=== PATIENT | male | born 2000 | race Caucasian/White ===

== ENCOUNTER 2018-05-14 14:13 | Emergency (ER) | payer OTHER ==
[~2018-05-14] VITALS: Ht 182.9 cm; Wt 83.9 kg
[~2018-05-14 14:13] MED LIST: PRM5C60 TP
--- OUTSIDE RECORDS SUMMARY | 2018-05-14 14:20 | XMS REPORT ---
Author Author JASON HUERTA [facility] Address [address] [place] [address] Care Team Providers Care Internal Auditor Name Role Phone BRADLEYKASHJASON Unavailable PROBLEMS Type Condition ICD9-CM Code ZST49-SQ Code Onset Dates Condition Status SNOMED Code Problem ADHD (attention deficit hyperactivity disorder), combined type F90.2 Active 23500227 Problem RACHELLE (generalized anxiety disorder) F41.1 Active 76696094 Problem Generalized anxiety disorder 300.02 Active 62704645 Problem Oppositional defiant disorder 313.81 Active [id number] ALLERGIES No Known Allergies ENCOUNTERS Encounter Location Date Diagnosis [facility] [place] [address] [address] Dec, [facility] [place] [id number] [place] [address] 40600- 0479 August, ADHD (attention deficit hyperactivity disorder), combined type F90.2 and RACHELLE (generalized anxiety disorder) F41.1 [facility] [place] [id number] [place] [address] 41792- 5816 Jun, [facility] [place] [id number] [place] [address] 47528- 3186 Apr, [facility] [place] [id number] [place] [address] 15076- 3172 Apr, ADHD (attention deficit hyperactivity disorder), combined type F90.2 [facility] [place] [id number] [place] [address] 30074- 7659 Feb, [facility] [place] [id number] [place] [address] 03317- 0993 Jan, [facility] [place] [id number] [place] [address] 83358- 7969 Dec, [facility] [place] [id number] [address] Nov, ADHD (attention deficit hyperactivity disorder), combined type F90.2 and RACHELLE (generalized anxiety disorder) F41.1 [facility] [place] [id number] [place] [address]- [address]46 Sep, [facility] [place] [id number] [place] [address], [place] [address] 99[address] Jul, [facility] [place] [id number] [place] [address], [place] [address]- 3536 Jun, [facility] [place] [id number] [place] [address], [place] [address]- 3126 May, [facility] [place] [id number] [address] 8[address] May, ADHD (attention deficit hyperactivity disorder), combined type F90.2 and RACHELLE (generalized anxiety disorder) F41.1 [facility] [place] [address], [place] [address] 44[address] Apr, [facility] [place] [id number] [place] [address] 46221- 5526 Apr, [facility] [place] [address], [place] [address]- 9794 Mar, [facility] [place] [id number] [address]- 9456 Feb, [facility] [place] [id number], [place] [address] 34[address] Jan, [facility] [place] [id number] [address] Jan, ADHD (attention deficit hyperactivity disorder), combined type F90.2 and RACHELLE (generalized anxiety disorder) F41.1 [facility] [place] [address], [place] [address]- 0586 Dec, [facility] [place] [id number] [address]- 67[address] Nov, [facility] [id number] [address] Nov, Sports physical Z02.5 ; Exercise counseling Z71.89 and Dietary counseling Z71.3 [facility] [place] [address] [address]- 83[address] Oct, [facility] [place] [id number] [address]- 0690 Sep, [facility] [place] [id number] [place] [address] 56520- 7559 Sep, [facility] [place] [id number], [place] [address]- 8[address] August, [facility] [place] [id number] [place] [address] 40046- 6887 Jul, [facility] [place] [id number] [place] [address] 88014- 2592 Jul, ADHD (attention deficit hyperactivity disorder), combined type F90.2 and RACHELLE (generalized anxiety disorder) F41.1 [facility] [place] [address], [place] [address]- 0656 Jun, [facility] [place] [address] [address]- 39[address] May, [facility] [place] [address], [place] [address]- 4085 Apr, [facility] [place] [address], [place] [address]- 1616 Apr, [facility] [place] [id number] [address] Apr, ADHD (attention deficit hyperactivity disorder), combined type F90.2 and RACHELLE (generalized anxiety disorder) F41.1 [facility] [place] [id number] [address]- 8816 Mar, [facility] [place] [address], [place] [address]- 5936 Jan, Attention deficit hyperactivity disorder (ADHD), combined type F90.2 and RACHELLE (generalized anxiety disorder) F41.1 [facility] [place] [address] [address]- 5616 Nov, [facility] [place] [id number] [place] [address] 02472- 6496 Nov, [facility] [place] [id number] [place] [address] 24981- 1115 August, Attention deficit disorder with hyperactivity 314.01 and Generalized anxiety disorder 300.02 [facility] [place] [id number] [address]- 5[address] 14 Jul, 2014 [facility] [place] [id number] [place] [address] 715594- 6568 Jul, [facility] [place] [address], [place] [address]- 2900 Jun, [facility] [place] [id number] [address]- 2389 Jun, [facility] [place] [address] [address] May, [facility] [place] [address] [address] May, [facility] [place] [address], [place] [address]- 6159 Mar, [facility] [place] [id number] [address]- 3206 Mar, [facility] [place] [address], [place] [address]- 3016 Dec, [facility] [place] [address], [place] [address]- 0106 Dec, [facility] [place] [facility] [address] [id number] [place] [address]- 3108 Sep, [facility] [place] [facility] [address] [id number] [place] [address]- 3946 Sep, [facility] [place] [facility] [address] [id number] [place] [address]- 6254 Sep, [facility] [place] [facility] [address] [id number] [place] [address]- 4713 Sep, [facility] [place] [facility] [address] [id number] [place] [address]- 4809 August, [facility] [place] [facility] [address] [id number] [place] [address]- 7603 August, [facility] [place] [facility] [address] [id number] [place] [address]- 5794 August, [facility] [place] [facility] [address] [id number] [place] [address]- 3407 August, [facility] [place] [facility] [address] [id number] [place] [address]- 2130 Jul, [facility] [place] [facility] [address] [id number] [place] [address]- 8525 Jul, [facility] [place] [facility] [address] [id number] [place] [address]- 5883 May, [facility] [place] [facility] [address] [id number] [place] [address]- 1206 May, [facility] [place] [facility] [address] [id number] [place] [address]- 2797 Apr, [facility] [place] [facility] [address] [id number] [place] [address]- 4016 Apr, [facility] [place] [facility] [address] [id number] [place] [address]- 8831 Mar, [facility] [place] [facility] [address] [id number] [place] [address]- 9390 31 Mar, 2013 [facility] [address] [id number] [place] [address]- 7307 30 Mar, 2013 [facility] [place] [facility] [address] [id number] [place] [address]- 4939 Mar, [facility] [address] [id number] [place] [address]- 1736 Mar, [facility] [place] [facility] [address] [id number] [place] [address]- 2533 Feb, [facility] [address] [id number] [place] [address]- 6781 Feb, [facility] [place] [facility] [address] [id number] [place] [address]- 8826 Feb, [facility] [address] [id number] [place] [address]- 9870 Feb, [facility] [address] [id number] [place] [address]- 2702 Apr, [facility] [address] [id number] [place] [address]- 8998 Sep, [facility] [address] [facility] [id number] [place] [address]- 2046 Jan, [facility] [address] [id number] [place] [address]- 9499 Jan, [facility] [place] [facility] [address] [id number] [place] [address]- 8242 Oct, [facility] [place] [facility] [address] [id number] [place] [address]- 5271 Jul, [facility] [place] [facility] [address] [id number] [place] [address]- 5649 07 Mar, 2010 [facility] [place] [facility] [address] [id number] [place] [address]- 3833 Feb, [facility] [place] [address] [facility] [id number] [place] [address]- 2146 Jan, [facility] [place] [address] [facility] [id number] [address]- 5906 Sep, [facility] [place] [address] [facility] [id number] [place] [address]- 2046 Jan, IMMUNIZATIONS No Known Immunizations SOCIAL HISTORY Never Assessed REASON FOR VISIT f/u, contract PLAN OF CARE Activity Details Follow Up 3 Months Reason: VITAL SIGNS Height 73.0 in 2017-08-20 Weight 187.5 lbs 2017-08-20 Heart Rate 68 bpm 2017-08-20 Respiratory Rate 20 2017-08-20 BMI 24.73 kg/m2 2017-08-20 Blood pressure systolic 110 mmHg 2017-08-20 Blood pressure diastolic 76 mmHg 2017-08-20 MEDICATIONS Medication Instructions Dosage Frequency Start Date End Date Duration Status Adderall 10 mg Orally On Thursday and Thursday for ADHD 1 tablet in the AM August, Active Vyvanse 60 mg Orally Once a day for ADHD Thursday through Thursday 1 capsule August, 28 days Active RESULTS No Results PROCEDURES No Known procedures INSTRUCTIONS MEDICATIONS ADMINISTERED No Known Medications
--- OUTSIDE RECORDS SUMMARY | 2018-05-14 14:20 | XMS REPORT ---
Author Author JASON HUERTA [facility] Address [address] [place] [address] Care Team Providers Care Boat And Plant Utility Supervisor Name Role Phone BRADLEY JASON Unavailable PROBLEMS Type Condition ICD9-CM Code [id number] Code Onset Dates Condition Status SNOMED Code Problem ADHD (attention deficit hyperactivity disorder), combined type F90.2 Active 86856645 Problem RACHELLE (generalized anxiety disorder) F41.1 Active 26108662 Problem Generalized anxiety disorder 300.02 Active 10175885 Problem Oppositional defiant disorder 313.81 Active [id number] ALLERGIES No Information ENCOUNTERS Encounter Location Date Diagnosis [facility] [id number] [place] [address] 09641- 2293 May, [facility] [id number] [place] [address] 02128- 8373 Dec, ADHD (attention deficit hyperactivity disorder), combined type F90.2 and RACHELLE (generalized anxiety disorder) F41.1 [facility] [id number] [address]- 4800 Dec, [facility] [id number] [place] [address] 50145- 6867 August, ADHD (attention deficit hyperactivity disorder), combined type F90.2 and RACHELLE (generalized anxiety disorder) F41.1 [facility] [address], [place] [address]- 0509 Jun, [facility] [id number] [place] [address] 00329- 9045 Apr, [facility] [id number] [place] [address] 87821- 9771 Apr, ADHD (attention deficit hyperactivity disorder), combined type F90.2 [facility] [address], [place] [address]- 3749 Feb, [facility] [id number] [place] [address]- 8786 Jan, [facility] [id number] [place] [address]- 9366 Dec, [facility] [id number] [place] [address] 70073- 0495 Nov, ADHD (attention deficit hyperactivity disorder), combined type F90.2 and RACHELLE (generalized anxiety disorder) F41.1 [facility] [id number] [place] [address], [place] [address]- 4546 Sep, [facility] [id number] [address]- 4276 Jul, [facility] [id number] [place] [address] 55087- 8488 Jun, [facility] [address], [place] [address]- 0726 May, [facility] [id number] [address]- 6539 May, ADHD (attention deficit hyperactivity disorder), combined type F90.2 and RACHELLE (generalized anxiety disorder) F41.1 [facility] [address] [address]- 1816 Apr, [facility] [address], [place] [address]- 4766 Apr, [facility] [address], [place] [address]- 8309 Mar, [facility] [id number] [place] [address]- 7136 Feb, [facility] [id number], [place] [address]- 8896 Jan, [facility] [address], [place] [address]- 5913 Jan, ADHD (attention deficit hyperactivity disorder), combined type F90.2 and RACHELLE (generalized anxiety disorder) F41.1 [facility] [id number] [address]- 1456 Dec, [facility] [id number] [place] [address] 82895- 9187 Nov, [facility] [id number] [place] [address] [id number] Nov, Sports physical Z02.5 ; Exercise counseling Z71.89 and Dietary counseling Z71.3 [facility] [id number] [place] [address] 374100- 0591 Oct, [facility] [id number] [place] [address] 28190- 6662 Sep, [facility] [id number] [place] [address] 68377- 9934 Sep, [facility] [id number] [place] [address] 32253- 7055 August, [facility] [id number] [place] [address] 71069- 7826 Jul, [facility] [id number] [place] [address] 02563- 2906 Jul, ADHD (attention deficit hyperactivity disorder), combined type F90.2 and RACHELLE (generalized anxiety disorder) F41.1 [facility] [address], [place] [address]- 9111 Jun, [facility] [id number] [place] [address] 464655- 8086 May, [facility] [address], [place] [address]- 8175 Apr, [facility] [id number] [address]- 1876 Apr, [facility] [address], [place] [address]- 5646 Apr, ADHD (attention deficit hyperactivity disorder), combined type F90.2 and RACHELLE (generalized anxiety disorder) F41.1 [facility] [address], [place] [address]- 1656 Mar, [facility] [id number] [place] [address] 74952- 3696 Jan, Attention deficit hyperactivity disorder (ADHD), combined type F90.2 and RACHELLE (generalized anxiety disorder) F41.1 [facility] [id number] [place] [address] 66713- 7166 Nov, [facility] [id number] [address]- 5199 Nov, [facility] [id number] [place] [address] 07519- 4752 August, Attention deficit disorder with hyperactivity 314.01 and Generalized anxiety disorder 300.02 [facility] [address], [place] [address]- 9740 Jul, [facility] [address] 5636 Jul, [facility] [address], [place] [address]- 4396 Jun, [facility] [id number], [place] [address] 2546 Jun, [facility] [address], [place] [address]- 0686 May, [facility] [address], [place] [address]- 3496 May, [facility] [address], [place] [address]- 3266 Mar, [facility] [place] [facility] [address] [id number] [place] [address]- 5603 Mar, [facility] [place] [facility] [address] [id number] [place] [address]- 8785 Dec, [facility] [place] [facility] [address] [id number] [place] [address]- 4982 Dec, [facility] [place] [facility] [address] [id number] [place] [address]- 8062 Sep, [facility] [place] [facility] [address] [id number] [place] [address]- 4846 Sep, [facility] [place] [facility] [address] [id number] [place] [address]- 9273 Sep, [facility] [place] [facility] [address] [id number] [place] [address]- 3726 Sep, [facility] [place] [facility] [address] [id number] [place] [address]- 1194 August, [facility] [place] [facility] [address] [id number] [place] [address]- 4988 August, [facility] [place] [facility] [address] [id number] [place] [address]- 8412 August, [facility] [place] [facility] [address] [id number] [place] [address]- 0843 August, [facility] [place] [facility] [address] [id number], [place] [address]- 5013 Jul, [facility] [place] [facility] [address] [id number] [place] 1435 Jul, [facility] [place] [facility] [address] [id number] [place] [address]- 7883 May, [facility] [place] [facility] [address] [id number] [place] 5428 May, [facility] [place] [facility] [address] [id number] [address]- 5234 Apr, [facility] [address] [id number] [place] [address]- 8479 Apr, [facility] [place] [facility] [address] [id number] [place] [address] Mar, [facility] [place] [facility] [address] [id number] [place] [address] Mar, [facility] [place] [facility] [address] [id number] [place] [address] Mar, [facility] [place] [facility] [address] [id number] [place] [address] Mar, [facility] [place] [facility] [address] [id number] [place] [address] Mar, [facility] [address] [id number] [place] [address] Feb, [facility] [place] [facility] [address] [id number] [place] [address] Feb, [facility] [place] [facility] [address] [id number] [place] [address] Feb, [facility] [place] [facility] [address] [id number] [place] [address] Feb, [facility] [place] [facility] [address] [id number], [place] [address] Apr, [facility] [place] [facility] [address] [id number], [place] [address] Sep, [facility] [place] [facility] [address] [id number], [place] [address] Jan, [facility] [place] [facility] [address] [id number] [place] [address] Jan, [facility] [place] [facility] [address] [id number] [place] [address] Oct, [facility] [place] [facility] [address] [facility] [id number] [place] [address] Jul, [facility] [address] [id number], [place] [address] Mar, [facility] [address] [id number], [place] [address] Feb, [facility] [address] [id number], [place] [address] Jan, [facility] [address] [id number], [place] [address] Sep, [facility] [address] [id number], [place] [address] Jan, IMMUNIZATIONS No Known Immunizations SOCIAL HISTORY Never Assessed REASON FOR VISIT f/silvina Parikh RN, adhd PLAN OF CARE Activity Details Follow Up 4-5m Reason: VITAL SIGNS Height 73.0 in 2017-12-31 Weight 186.2 lbs 2017-12-31 Heart Rate 74 bpm 2017-12-31 Respiratory Rate 18 2017-12-31 BMI 24.56 kg/m2 2017-12-31 Blood pressure systolic 118 mmHg 2017-12-31 Blood pressure diastolic 68 mmHg 2017-12-31 MEDICATIONS Medication Instructions Dosage Frequency Start Date End Date Duration Status Adderall 10 mg Orally On Thursday and Thursday for ADHD 1 tablet in the AM Dec, Active Vyvanse 60 mg Orally Once a day for ADHD Thursday through Thursday 1 capsule Dec, 28 days Active RESULTS No Results PROCEDURES No Known procedures INSTRUCTIONS MEDICATIONS ADMINISTERED No Known Medications
--- OUTSIDE RECORDS SUMMARY | 2018-05-14 14:21 | XMS REPORT ---
Author Author JASON HUERTA [facility] Address [address] [place] [address] Care Team Providers Care Major Donor Coordinator Name Role Phone JASON HUERTA Unavailable PROBLEMS Type Condition ICD9-CM Code EXE31-IL Code Onset Dates Condition Status SNOMED Code Problem ADHD (attention deficit hyperactivity disorder), combined type F90.2 Active 01728223 Problem RACHELLE (generalized anxiety disorder) F41.1 Active 81379480 Problem Generalized anxiety disorder 300.02 Active 67590594 Problem Oppositional defiant disorder 313.81 Active [id number] ALLERGIES No Information SOCIAL HISTORY Never Assessed PLAN OF CARE VITAL SIGNS MEDICATIONS Medication Instructions Dosage Frequency Start Date End Date Duration Status Vyvanse 50 mg Orally Once a day 1 capsule 24h May, 28 days Active Adderall 10 mg Orally On Thursday and Thursday for ADHD 1 tablet at noon May, 28 days Active RESULTS No Results PROCEDURES No Known procedures IMMUNIZATIONS No Known Immunizations
--- OUTSIDE RECORDS SUMMARY | 2018-05-14 14:21 | XMS REPORT ---
Author Author JASON HUERTA [employer] Address Unknown Phone Unavailable Care Team Providers Care Marine Structural Welder Name Role Phone JASON HUERTA CP Unavailable Allergies, Adverse Reactions, Alerts Substance Reaction Event Type N.K.D.A. Info Not Available Non Drug Allergy Problems Problem Type Condition Code Onset Dates Condition Status Problem RACHELLE (generalized anxiety disorder) F41.1 Active Problem Oppositional defiant disorder 313.81 Active Problem ADHD (attention deficit hyperactivity disorder), combined type F90.2 Active Assessment RACHELLE (generalized anxiety disorder) F41.1 Active Problem Generalized anxiety disorder 300.02 Active Assessment ADHD (attention deficit hyperactivity disorder), combined type F90.2 Active Medications Medication Code System Code Instructions Start Date End Date Status Dosage Vyvanse [facility] [address]-[address] Barreto to sign for Yaquelin Once a day for ADHD. June 21, 2014 1 capsule Procedures Procedure Coding System Code Date Office Visit, Est Pt., Level 4 CPT-4 96452 Apr 17, 2015 Vital Signs Date/Time: Apr 17, 2015 Blood Pressure Systolic 102 mmHg Weight 187.0 lbs Height 72.4 in Wt Percentile 93.07 % Ht Percentile 89.14 % BMI 25.08 Index Blood Pressure Diastolic 74 mmHg BMIPercentile 86.4 % Results No Known Results Summary Purpose eClinicalWorks Submission
--- OUTSIDE RECORDS SUMMARY | 2018-05-14 14:21 | XMS REPORT ---
Author Author RAZA FRAUSTO Organization [facility] Address [address] [place] [address] Care Team Providers Care Jackscrew Worker Name Role Phone RAZA FRAUSTO Unavailable PROBLEMS Type Condition ICD9-CM Code EAZ97-IC Code Onset Dates Condition Status SNOMED Code Problem ADHD (attention deficit hyperactivity disorder), combined type F90.2 Active 97533942 Problem RACHELLE (generalized anxiety disorder) F41.1 Active 94000483 Problem Generalized anxiety disorder 300.02 Active 29923633 Problem Oppositional defiant disorder 313.81 Active 31010052 ALLERGIES No Information ENCOUNTERS Encounter Location Date Diagnosis [facility] [address] [address] Dec, [facility] [id number] [place] [address] August, ADHD (attention deficit hyperactivity disorder), combined type F90.2 and RACHELLE (generalized anxiety disorder) F41.1 [facility] [id number] [place] [address] Jun, [facility] [id number] [place] [address] Apr, [facility] [id number] [place] [address] Apr, ADHD (attention deficit hyperactivity disorder), combined type F90.2 [facility] [id number] [place] [address] Feb, [facility] [id number] [place] [address]- [address] Jan, [facility] [address] [address] Dec, [facility] [id number] [address] Nov, ADHD (attention deficit hyperactivity disorder), combined type F90.2 and RACHELLE (generalized anxiety disorder) F41.1 [facility] [id number] [place] [address] Sep, [facility] [id number] [place] [address], [place] [address] Jul, [facility] [id number] [place] [address] Jun, [facility] [id number] [place] [address], [place] [address] May, [facility] [id number] [place] [address] May, ADHD (attention deficit hyperactivity disorder), combined type F90.2 and RACHELLE (generalized anxiety disorder) F41.1 [facility] [id number] [address] Apr, [facility] [id number] [place] [address] Apr, [facility] [id number] [address] Mar, [facility] [id number] [address] Feb, [facility] [id number] [address] Jan, [facility] [id number] [address] Jan, ADHD (attention deficit hyperactivity disorder), combined type F90.2 and RACHELLE (generalized anxiety disorder) F41.1 [facility] [id number] [address] Dec, [facility] [id number] [address] Nov, [facility] [id number] [id number] Nov, Sports physical Z02.5 ; Exercise counseling Z71.89 and Dietary counseling Z71.3 [facility] [id number] [address] Oct, [facility] [id number] [place] [address]- [address] Sep, [facility] [id number] [place] [address]- 2015 Sep, [facility] [id number] [place] [address]- [address] August, [facility] [id number] [place] [address]- [address] Jul, [facility] [id number] [place] [address]- [address] Jul, ADHD (attention deficit hyperactivity disorder), combined type F90.2 and RACHELLE (generalized anxiety disorder) F41.1 [facility] [id number] [address] Jun, [facility] [id number] [address] May, [facility] [id number] [address] Apr, [facility] [id number] [address] Apr, [facility] [id number] Apr, ADHD (attention deficit hyperactivity disorder), combined type F90.2 and RACHELLE (generalized anxiety disorder) F41.1 [facility] [id number] [place] [address] Mar, [facility] [id number] [address] Jan, Attention deficit hyperactivity disorder (ADHD), combined type F90.2 and RACHELLE (generalized anxiety disorder) F41.1 [facility] [id number] [address] Nov, [facility] [id number] [address] Nov, [facility] [id number] [address] August, Attention deficit disorder with hyperactivity 314.01 and Generalized anxiety disorder 300.02 [facility] [id number] [address] Jul, [facility] [id number] [place] [address]- [address] Jul, [facility] [id number] [address] Jun, [facility] [id number] [address] Jun, [facility] [id number] [address]- [address] May, [facility] [id number] [address]- [address] May, [facility] [id number] [address]- [address] Mar, [facility] [id number] [address]- [address] Mar, [facility] [id number] [address]- [address] Dec, [facility] [id number] [address]- [address] Dec, [facility] [place] [facility] [address] [id number] [place] [address]- [address] Sep, [facility] [place] [facility] [address] [id number] [place] [address]- 8[address] Sep, [facility] [place] [facility] [address] [id number] [place] [address]- 8989 Sep, [facility] [place] [facility] [address] [id number] [place] [address]- [address] Sep, [facility] [place] [facility] [address] [id number] [place] [address]- 0[address] August, [facility] [place] [facility] [address] [id number] [place] [address]- 99[address] August, [facility] [place] [facility] [address] [id number] [place] [address]- [address] August, [facility] [place] [facility] [address] [id number] [place] [address]- 27[address] August, [facility] [place] [facility] [address] [id number] [place] [address]- [address] Jul, [facility] [place] [facility] [address] [id number] [place] [address]- [address]265 Jul, [facility] [place] [facility] [address] [id number] [place] [address]- 5231 May, [facility] [place] [facility] [address] [id number] [place] [address]- 9398 May, [facility] [place] [facility] [address] [id number] [place] [address]- 1353 Apr, [facility] [place] [facility] [address] [id number] [place] [address]- 34[address] Apr, [facility] [place] [facility] [address] [id number] [place] [address]- 488[address] Mar, [facility] [place] [facility] [address] [id number] [place] [address]- [address] 31 Mar, 2013 [facility] [address] [id number] [place] [address]- [address] 30 Mar, 2013 [facility] [place] [facility] [address] [id number] [place] [address]- 0762 Mar, [facility] [address] [id number] [place] [address]- 5406 Mar, [facility] [place] [facility] [address] [id number] [place] [address]- 9349 Feb, [facility] [address] [id number] [place] [address]- 58[address] Feb, [facility] [place] [facility] [address] [id number] [place] [address]- 4714 Feb, [facility] [address] [facility] [id number] [place] [address]- 9[address] Feb, [facility] [place] [facility] [address] [id number] [place] [address]- 0424 Apr, [facility] [place] [facility] [address] [id number] [place] [address]- 0203 Sep, [facility] [address] [facility] [id number] [place] [address]- 66[address] Jan, [facility] [place] [facility] [address] [id number] [place] [address]- 49[address] Jan, [facility] [place] [facility] [address] [id number] [address]- [address] Oct, [facility] [place] [facility] [address] [id number] [place] [address]- 0457 Jul, [facility] [place] [facility] [address] [id number] [place] [address]- 8[address] 07 Mar, 2010 [facility] [place] [facility] [address] [id number] [address]- [address] Feb, [facility] [address] [facility] [id number] [place] [address]- 2766 Jan, [facility] [address] [facility] [id number] [address]- [address] Sep, [facility] [address] [facility] [id number] [place] [address]- 8031 Jan, IMMUNIZATIONS No Known Immunizations SOCIAL HISTORY Never Assessed REASON FOR VISIT vyvanse 07/06/2017 PLAN OF CARE VITAL SIGNS MEDICATIONS Medication Instructions Dosage Frequency Start Date End Date Duration Status Vyvanse 60 mg Orally Once a day for ADHD 1 capsule Jun, 28 days Active RESULTS No Results PROCEDURES No Known procedures INSTRUCTIONS MEDICATIONS ADMINISTERED No Known Medications
--- OUTSIDE RECORDS SUMMARY | 2018-05-14 14:21 | XMS REPORT ---
Author JASON Mcginnis eClinicalWorks Address Unknown Phone Unavailable Care Team Providers Care Social Science Research Assistant Name Role Phone JASON HUERTA CP Unavailable [...] Instructions Start Date End Date Status Dosage Adderall [facility] [address]-17 10 mg Orally On Thursday and Thursday for ADHD Jan 22, 2016 1 tablet at noon Vyvanse [facility] [address]-97 50 mg Orally Once a day for ADHD. June 21, 2014 1 capsule Procedures Procedure Coding System Code Date Office Visit, Est Pt., Level 4 CPT-4 37401 Jan 22, 2016 Vital Signs Date/Time: Jan 22, 2016 Cardiac Monitoring Heart Rate 56 bpm Weight 186.0 lbs Height 73.0 in Ht Percentile 91.09 % BMI 24.54 Index Blood Pressure Diastolic 70 mmHg Blood Pressure Systolic 97 mmHg BMIPercentile 80.35 % Wt Percentile 90.52 % Results No Known Results Summary Purpose eClinicalWorks Submission
--- OUTSIDE RECORDS SUMMARY | 2018-05-14 14:21 | XMS REPORT ---
Author JASON Mcginnis eClinical[employer] Address Unknown Phone Unavailable Care Team Providers Care Home Teaching Grades 9 Thru 12 Teacher Name Role Phone JASON HUERTA CP Unavailable Allergies No Known Allergies Problems Problem Type Condition Code Onset Dates Condition Status Problem RACHELLE (generalized anxiety disorder) F41.1 Active Problem Oppositional defiant disorder 313.81 Active Problem ADHD (attention deficit hyperactivity disorder), combined type F90.2 Active Problem Generalized anxiety disorder 300.02 Active Medications No Known Medications Results No Known Results Summary Purpose eClinicalWorks Submission
--- OUTSIDE RECORDS SUMMARY | 2018-05-14 14:21 | XMS REPORT ---
Author Author JASON HUERTA [facility] Address [address] [place] [address] Care Team Providers Care Patient Attendant Name Role Phone BRADLEY JASON Unavailable PROBLEMS Type Condition ICD9-CM Code [id number] Code Onset Dates Condition Status SNOMED Code Problem ADHD (attention deficit hyperactivity disorder), combined type F90.2 Active 47239131 Problem RACHELLE (generalized anxiety disorder) F41.1 Active 09279297 Problem Generalized anxiety disorder 300.02 Active 38193955 Problem Oppositional defiant disorder 313.81 Active [id number] ALLERGIES No Information ENCOUNTERS Encounter Location Date Diagnosis [facility] [id number] [place] [address] 60011- 6918 Dec, [facility] [id number] [place] [address] 12228- 5040 August, ADHD (attention deficit hyperactivity disorder), combined type F90.2 and RACHELLE (generalized anxiety disorder) F41.1 [facility] [id number] [place] [address] 02934- 4956 Jun, [facility] [id number] [place] [address] 63773- 0988 Apr, [facility] [id number] [place] [address] 58883- 9777 Apr, ADHD (attention deficit hyperactivity disorder), combined type F90.2 [facility] [id number] [place] [address] 28640- 3354 Feb, [facility] [id number] [place] [address] 20532- 2815 Jan, [facility] [id number] [place] [address] 06471- 3618 Dec, [facility] [address] [address] Nov, ADHD (attention deficit hyperactivity disorder), combined type F90.2 and RACHELLE (generalized anxiety disorder) F41.1 [facility] [id number] [place] [address]- 2546 Sep, [facility] [id number] [place] [address], [place] [address]- 6406 Jul, [facility] [id number] [place] [address]- 0593 Jun, [facility] [id number] [place] [address], [place] [address]- 3096 May, [facility] [id number] [place] [address]- 8116 May, ADHD (attention deficit hyperactivity disorder), combined type F90.2 and RACHELLE (generalized anxiety disorder) F41.1 [facility] [id number] [address]- 8180 Apr, [facility] [id number] [place] [address] 69118- 6846 Apr, [facility] [id number] [address] Mar, [facility] [address] [address]- 4356 Feb, [facility] [address] [address]- 2731 Jan, [facility] [id number] [address]- 3166 Jan, ADHD (attention deficit hyperactivity disorder), combined type F90.2 and RACHELLE (generalized anxiety disorder) F41.1 [facility] [address] [address]- 5156 Dec, [facility] [address] [address]- 1475 Nov, [facility] [id number] [address] Nov, Sports physical Z02.5 ; Exercise counseling Z71.89 and Dietary counseling Z71.3 [facility] [address] [address]- 2245 Oct, [facility] [id number] [place] [address] 40366- 1337 Sep, [facility] [id number] [place] [address] 30737- 7653 Sep, [facility] [id number] [place] [address] 55897- 5326 August, [facility] [id number] [place] [address] 28529- 0392 Jul, [facility] [id number] [place] [address] 32093- 8098 Jul, ADHD (attention deficit hyperactivity disorder), combined type F90.2 and RACHELLE (generalized anxiety disorder) F41.1 [facility] [address] [address]- 0916 Jun, [facility] [address] [address]- 3456 May, [facility] [id number] [address]- 0409 Apr, [facility] [address] [address]- 3106 Apr, [facility] [address] 5658 Apr, ADHD (attention deficit hyperactivity disorder), combined type F90.2 and RACHELLE (generalized anxiety disorder) F41.1 [facility] [id number] [place] [address] 91290- 3396 Mar, [facility] [address] [address]- 5656 Jan, Attention deficit hyperactivity disorder (ADHD), combined type F90.2 and RACHELLE (generalized anxiety disorder) F41.1 [facility] [address] [address]- 3106 Nov, [facility] [id number] [address]- 1496 Nov, [facility] [address] [address]- 7470 August, Attention deficit disorder with hyperactivity 314.01 and Generalized anxiety disorder 300.02 [facility] [address] [address]- 5466 Jul, [facility] [id number] [place] [address] 57643- 8036 Jul, [facility] [address] 0979 Jun, [facility] [address] 6023 Jun, [facility] [address] [address]- 1096 May, [facility] [address] [address]- 8816 May, [facility] [id number] [address]- 1676 Mar, [facility] [address] [address]- 4096 Mar, [facility] [address] [address]- 7076 Dec, [facility] [address] [address]- 9096 Dec, [facility] [place] [facility] [address] [id number] [place] [address]- 1967 Sep, [facility] [place] [facility] [address] [id number] [place] [address]- 6955 Sep, [facility] [place] [facility] [address] [id number] [place] [address]- 2649 Sep, [facility] [place] [facility] [address] [id number] [place] [address]- 6356 Sep, [facility] [place] [facility] [address] [id number] [place] [address]- 1321 August, [facility] [place] [facility] [address] [id number] [place] [address]- 3283 August, [facility] [place] [facility] [address] [id number] [place] [address]- 6693 August, [facility] [place] [facility] [address] [id number] [place] [address]- 5657 August, [facility] [place] [facility] [address] [id number] [place] [address]- 7736 Jul, [facility] [place] [facility] [address] [id number] [place] [address]- 1969 Jul, [facility] [place] [facility] [address] [id number] [place] [address]- 9889 May, [facility] [place] [facility] [address] [id number] [place] [address]- 7319 May, [facility] [place] [facility] [address] [id number] [place] [address]- 6937 Apr, [facility] [place] [facility] [address] [id number] [place] [address]- 9575 Apr, [facility] [place] [facility] [address] [id number] [place] [address]- 1941 Mar, [facility] [place] [facility] [address] [id number] [place] [address]- 6965 31 Mar, 2013 [facility] [address] [id number] [place] [address]- 2552 30 Mar, 2013 [facility] [place] [facility] [address] [id number] [place] [address]- 7979 Mar, [facility] [address] [id number] [place] [address]- 1801 Mar, [facility] [place] [facility] [address] [id number] [place] [address]- 4369 Feb, [facility] [address] [id number] [place] [address]- 8100 Feb, [facility] [place] [facility] [address] [id number] [place] [address]- 1766 Feb, [facility] [address] [facility] [id number] [place] [address]- 9944 Feb, [facility] [place] [facility] [address] [id number] [place] [address]- 1168 Apr, [facility] [place] [facility] [address] [id number] [place] [address]- 9381 Sep, [facility] [address] [facility] [id number] [place] [address]- 0558 Jan, [facility] [place] [facility] [address] [id number] [place] [address]- 2351 Jan, [facility] [place] [facility] [address] [id number] [address]- 8582 Oct, [facility] [place] [facility] [address] [id number] [place] [address]- 3922 Jul, [facility] [place] [facility] [address] [id number] [place] [address]- 0603 07 Mar, 2010 [facility] [place] [facility] [address] [id number] [address]- 1028 Feb, [facility] [address] [facility] [id number] [place] [address]- 3631 Jan, [facility] [address] [facility] [id number] [address]- 7759 Sep, [facility] [address] [facility] [id number] [address]- 2109 Jan, IMMUNIZATIONS No Known Immunizations SOCIAL HISTORY Never Assessed REASON FOR VISIT f/u PLAN OF CARE Activity Details Follow Up August 2017 Reason: VITAL SIGNS Height 73.0 in 2017-04-21 Weight 195 lbs 2017-04-21 BMI 25.72 kg/m2 2017-04-21 Blood pressure systolic 122 mmHg 2017-04-21 Blood pressure diastolic 78 mmHg 2017-04-21 MEDICATIONS Medication Instructions Dosage Frequency Start Date End Date Duration Status Vyvanse 60 mg Orally Once a day for ADHD 1 capsule Apr, 28 days Active RESULTS No Results PROCEDURES No Known procedures INSTRUCTIONS MEDICATIONS ADMINISTERED No Known Medications
--- OUTSIDE RECORDS SUMMARY | 2018-05-14 14:21 | XMS REPORT ---
Author Author JASON HUERTA [facility] Address [address] [place] [address] Care Team Providers Care Sports Umpire Name Role Phone JASON HUERTA Unavailable PROBLEMS Type Condition ICD9-CM Code [id number] Code Onset Dates Condition Status SNOMED Code Problem ADHD (attention deficit hyperactivity disorder), combined type F90.2 Active 00312214 Problem RACHELLE (generalized anxiety disorder) F41.1 Active 46928073 Problem Oppositional defiant disorder 313.81 Active 72962800 Problem Generalized anxiety disorder 300.02 Active 80521829 ALLERGIES Unknown Allergies SOCIAL HISTORY No smoking Hx information available PLAN OF CARE VITAL SIGNS MEDICATIONS Medication Instructions Dosage Frequency Start Date End Date Duration Status Vyvanse 50 mg Orally Once a day 1 capsule 24h Mar, Active RESULTS No Results PROCEDURES No Known procedures IMMUNIZATIONS No Known Immunizations
--- OUTSIDE RECORDS SUMMARY | 2018-05-14 14:21 | XMS REPORT ---
Author JASON Mcginnis [employer] Address Unknown Phone Unavailable Care Team Providers Care Computer Programmer Chief Name Role Phone JASON HUERTA CP Unavailable Allergies No Known Allergies Problems Problem Type Condition ICD-9 Code Onset Dates Condition Status Problem Generalized anxiety disorder 300.02 Active Problem Oppositional defiant disorder 313.81 Active Medications Medication Code System Code Instructions Start Date End Date Status Dosage Vyvanse [facility] [address]-39 50 MG Orally Once a day for ADHD. Must keep next Appt for any additional refills. June 21, 2014 1 capsule Results No Known Results Summary Purpose [employer] Submission
--- OUTSIDE RECORDS SUMMARY | 2018-05-14 14:21 | XMS REPORT ---
Author Author JASON HUERTA [facility] Address [address] [place] [address] Care Team Providers Care Shoe Folder Name Role Phone BRADLEYKASHJASON Unavailable PROBLEMS Type Condition ICD9-CM Code EBQ66-CQ Code Onset Dates Condition Status SNOMED Code Problem ADHD (attention deficit hyperactivity disorder), combined type F90.2 Active 83758707 Problem RACHELLE (generalized anxiety disorder) F41.1 Active 03940705 Problem Generalized anxiety disorder 300.02 Active 72808663 Problem Oppositional defiant disorder 313.81 Active 71557354 ALLERGIES No Information ENCOUNTERS Encounter Location Date Diagnosis [facility] [id number] [place] [address] 64661- 5060 Dec, [facility] [id number] [place] [address] 24788- 3775 August, ADHD (attention deficit hyperactivity disorder), combined type F90.2 and RACHELLE (generalized anxiety disorder) F41.1 [facility] [id number] [place] [address] 96145- 3594 Jun, [facility] [id number] [place] [address] 67125- 6044 Apr, [facility] [id number] [place] [address] 33954- 5801 Apr, ADHD (attention deficit hyperactivity disorder), combined type F90.2 [facility] [id number] [place] [address] 78247- 2668 Feb, [facility] [id number] [place] [address] 11168- 2947 Jan, [facility] [id number] [place] [address] 06569- 4674 Dec, [facility] [id number], [place] [address]- 8632 Nov, ADHD (attention deficit hyperactivity disorder), combined type F90.2 and RACHELLE (generalized anxiety disorder) F41.1 [facility] [address] [place] [address]- 2546 Sep, [facility] [id number] [place] [address], [place] [address]- 4816 Jul, [facility] [address] [place] [address]- 7754 Jun, [facility] [id number] [place] [address], [place] [address]- 0006 May, [facility] [id number] [place] [address]- 9856 May, ADHD (attention deficit hyperactivity disorder), combined type F90.2 and RACHELLE (generalized anxiety disorder) F41.1 [facility] [id number], [place] [address]- 2106 Apr, [facility] [id number] [place] [address] 56777- 5016 Apr, [facility] [id number], [place] [address]- 0380 Mar, [facility] [id number], [place] [address]- 5161 Feb, [facility] [id number], [place] [address]- 8149 Jan, [facility] [id number], [place] [address]- 6926 Jan, ADHD (attention deficit hyperactivity disorder), combined type F90.2 and RACHELLE (generalized anxiety disorder) F41.1 [facility] [id number], [place] [address]- 9046 Dec, [facility] [id number], [place] [address]- 5088 Nov, [facility] [id number] [id number] Nov, Sports physical Z02.5 ; Exercise counseling Z71.89 and Dietary counseling Z71.3 [facility] [id number], [place] [address]- 6518 Oct, [facility] [id number] [place] [address] 93425- 9475 Sep, [facility] [id number] [place] [address] 59891- 0764 Sep, [facility] [id number] [place] [address] 65616- 1656 August, [facility] [address] [place] [address] 24696- 8423 Jul, [facility] [id number] [place] [address] 20927- 4751 Jul, ADHD (attention deficit hyperactivity disorder), combined type F90.2 and RACHELLE (generalized anxiety disorder) F41.1 [facility] [id number], [place] [address]- 8666 Jun, [facility] [id number], [place] [address]- 8306 May, [facility] [id number], [place] [address]- 6098 Apr, [facility] [id number], [place] [address]- 5338 Apr, [facility] [id number] 1171 Apr, ADHD (attention deficit hyperactivity disorder), combined type F90.2 and RACHELLE (generalized anxiety disorder) F41.1 [facility] [id number] [place] [address] 94193- 4256 Mar, [facility] [id number], [place] [address]- 8756 Jan, Attention deficit hyperactivity disorder (ADHD), combined type F90.2 and RACHELLE (generalized anxiety disorder) F41.1 [facility] [id number], [place] [address]- 5786 Nov, [facility] [id number], [place] [address]- 7296 Nov, [facility] [id number], [place] [address]- 7382 August, Attention deficit disorder with hyperactivity 314.01 and Generalized anxiety disorder 300.02 [facility] [id number], [place] [address]- 0406 Jul, [facility] [id number] [place] [address] 11168- 2016 Jul, [facility] [id number] 1470 Jun, [facility] [id number] 1876 Jun, [facility] [id number], [place] [address]- 9416 May, [facility] [id number], [place] [address]- 2866 May, [facility] [id number] [address]- 0276 Mar, [facility] [id number], [place] [address]- 9616 Mar, [facility] [id number], [place] [address]- 2156 Dec, [facility] [id number], [place] [address]- 6149 Dec, [facility] [place] [facility] [address] [id number] [place] [address]- 8595 Sep, [facility] [place] [facility] [address] [id number] [place] [address]- 2775 Sep, [facility] [place] [facility] [address] [id number] [place] [address]- 3616 Sep, [facility] [place] [facility] [address] [id number] [place] [address]- 0088 Sep, [facility] [place] [facility] [address] [id number] [place] [address]- 3219 August, [facility] [place] [facility] [address] [id number] [place] [address]- 6516 August, [facility] [place] [facility] [address] [id number] [place] [address]- 3414 August, [facility] [place] [facility] [address] [id number] [place] [address]- 7461 August, [facility] [place] [facility] [address] [id number] [place] [address]- 7649 Jul, [facility] [place] [facility] [address] [id number] [place] [address]- 8102 Jul, [facility] [place] [facility] [address] [id number] [place] [address]- 9211 May, [facility] [place] [facility] [address] [id number] [place] [address]- 5109 May, [facility] [place] [facility] [address] [id number] [place] [address]- 8175 Apr, [facility] [place] [facility] [address] [id number] [place] [address]- 1365 Apr, [facility] [place] [facility] [address] [id number] [place] [address]- 7892 Mar, [facility] [place] [facility] [address] [id number] [place] [address]- 2461 31 Mar, 2013 [facility] [address] [id number] [place] [address]- 2815 30 Mar, 2013 [facility] [place] [facility] [address] [id number] [place] [address]- 8222 Mar, [facility] [address] [id number] [place] [address]- 4899 Mar, [facility] [place] [facility] [address] [id number] [place] [address]- 4871 Feb, [facility] [address] [id number] [place] [address]- 5506 Feb, [facility] [place] [facility] [address] [id number] [place] [address]- 2965 Feb, [facility] [address] [facility] [id number] [place] [address]- 4068 Feb, [facility] [place] [facility] [address] [id number] [place] [address]- 2098 Apr, [facility] [place] [facility] [address] [id number] [place] [address]- 9417 Sep, [facility] [address] [facility] [id number] [place] [address]- 5433 Jan, [facility] [place] [facility] [address] [id number] [place] [address]- 4748 Jan, [facility] [place] [facility] [address] [id number], [place] [address]- 7232 Oct, [facility] [place] [facility] [address] [id number] [place] [address]- 0641 Jul, [facility] [place] [facility] [address] [id number] [place] [address]- 5240 07 Mar, 2010 [facility] [place] [facility] [address] [id number], [place] [address]- 7134 Feb, [facility] [address] [facility] [id number] [place] [address]- 2546 Jan, [facility] [address] [facility] [id number], [place] [address]- 2546 Sep, [facility] [address] [facility] [id number], [place] [address]- 6596 Jan, IMMUNIZATIONS No Known Immunizations SOCIAL HISTORY Never Assessed REASON FOR VISIT vyvanse 02/05/2017 PLAN OF CARE VITAL SIGNS MEDICATIONS Medication Instructions Dosage Frequency Start Date End Date Duration Status Vyvanse 60 MG Orally Once a day 1 capsule 24h 14 Dec, 2016 28 days Active RESULTS No Results PROCEDURES No Known procedures INSTRUCTIONS MEDICATIONS ADMINISTERED No Known Medications
--- OUTSIDE RECORDS SUMMARY | 2018-05-14 14:21 | XMS REPORT ---
Author Author ANOOP MARQUIS Organization [employer] Address Unknown Phone Unavailable Care Team Providers Care Cascade Operator Name Role Phone ANOOP MARQUIS CP Unavailable Allergies, Adverse Reactions, Alerts Substance Reaction Event Type N.K.D.A. Info Not Available Non Drug Allergy Problems Problem Type Condition Code Onset Dates Condition Status Problem RACHELLE (generalized anxiety disorder) F41.1 Active Problem Oppositional defiant disorder 313.81 Active Problem ADHD (attention deficit hyperactivity disorder), combined type F90.2 Active Assessment Exercise counseling Z71.89 Active Assessment Dietary counseling Z71.3 Active Problem Generalized anxiety disorder 300.02 Active Assessment Sports physical Z02.5 Active Medications No Known Medications Procedures Procedure Coding System Code Date VISUAL ACUITY SCREEN CPT-4 46787 Nov 22, 2015 Preventive Care Est Pt. Age 12-17 CPT-4 27961 Nov 22, 2015 Vital Signs Date/Time: Nov 22, 2015 Cardiac Monitoring Heart Rate 66 bpm Weight 191 lbs Height 73 in Ht Percentile 91.4 % BMI 25.20 Index Blood Pressure Diastolic 68 mmHg Blood Pressure Systolic 118 mmHg BMIPercentile 84.94 % Wt Percentile 92.85 % Results No Known Results Summary Purpose [employer] Submission
--- OUTSIDE RECORDS SUMMARY | 2018-05-14 14:21 | XMS REPORT ---
Author Author JASON HUERTA [facility] Address [address] [place] [address] Care Team Providers Care Conductor Freight Name Role Phone JASON HUERTA Unavailable PROBLEMS Type Condition ICD9-CM Code [id number] Code Onset Dates Condition Status SNOMED Code Problem ADHD (attention deficit hyperactivity disorder), combined type F90.2 Active 33381627 Problem RACHELLE (generalized anxiety disorder) F41.1 Active 66168566 Problem Oppositional defiant disorder 313.81 Active 39341698 Problem Generalized anxiety disorder 300.02 Active 66160219 ALLERGIES Unknown Allergies SOCIAL HISTORY No smoking Hx information available PLAN OF CARE VITAL SIGNS MEDICATIONS Medication Instructions Dosage Frequency Start Date End Date Duration Status Vyvanse 50 mg Orally Once a day 1 capsule 24h Apr, 28 days Active RESULTS No Results PROCEDURES No Known procedures IMMUNIZATIONS No Known Immunizations
--- OUTSIDE RECORDS SUMMARY | 2018-05-14 14:21 | XMS REPORT ---
Author Author JASON HUERTA [employer] Address Unknown Phone Unavailable Care Team Providers Care Solar/Renewable Energy Sales Name Role Phone JASON HUERTA CP Unavailable Allergies No Known Allergies Problems Problem Type Condition Code Onset Dates Condition Status Problem RACHELLE (generalized anxiety disorder) F41.1 Active Problem Oppositional defiant disorder 313.81 Active Problem ADHD (attention deficit hyperactivity disorder), combined type F90.2 Active Problem Generalized anxiety disorder 300.02 Active Medications Medication Code System Code Instructions Start Date End Date Status Dosage Vyvanse [facility] [address]-[address] Barreto to sign for Yaquelin Once a day for ADHD. June 21, 2014 1 capsule Results No Known Results Summary Purpose eClinicalWorks Submission
--- OUTSIDE RECORDS SUMMARY | 2018-05-14 14:22 | XMS REPORT ---
Author Author JASON HUERTA [facility] Address [address] [place] [address] Care Team Providers Care Manager Intranet Name Role Phone JASON HUERTA Unavailable PROBLEMS Type Condition ICD9-CM Code [id number] Code Onset Dates Condition Status SNOMED Code Problem ADHD (attention deficit hyperactivity disorder), combined type F90.2 Active 59092258 Problem RACHELLE (generalized anxiety disorder) F41.1 Active 79708825 Problem Generalized anxiety disorder 300.02 Active 06847224 Problem Oppositional defiant disorder 313.81 Active [id number] ALLERGIES No Information SOCIAL HISTORY Never Assessed PLAN OF CARE VITAL SIGNS MEDICATIONS Medication Instructions Dosage Frequency Start Date End Date Duration Status Vyvanse 50 mg Orally Once a day 1 capsule 24h Jun, 28 days Active Adderall 10 mg Orally On Thursday and Thursday for ADHD 1 tablet at noon Jun, 28 days Active RESULTS No Results PROCEDURES No Known procedures IMMUNIZATIONS No Known Immunizations
--- OUTSIDE RECORDS SUMMARY | 2018-05-14 14:22 | XMS REPORT ---
Author Author JASON HUERTA [employer] Address Unknown Phone Unavailable Care Team Providers Care Telesales Supervisor Name Role Phone JASON HUERTA CP Unavailable Allergies No Known Allergies Problems Problem Type Condition Code Onset Dates Condition Status Problem RACHELLE (generalized anxiety disorder) F41.1 Active Problem Oppositional defiant disorder 313.81 Active Problem ADHD (attention deficit hyperactivity disorder), combined type F90.2 Active Problem Generalized anxiety disorder 300.02 Active Medications Medication Code System Code Instructions Start Date End Date Status Dosage Adderall [facility] [address]-27 10 mg Orally On Thursday and Thursday for ADHD Jan 22, 2016 1 tablet at noon Vyvanse [facility] [address]-59 50 mg Orally Once a day June 21, 2014 1 capsule Results No Known Results Summary Purpose eClinicalWorks Submission
--- OUTSIDE RECORDS SUMMARY | 2018-05-14 14:22 | XMS REPORT ---
Author Author RAZA FRAUSTO [facility] Address [address] [place] [address] Care Team Providers Care Oracle Soa Consultant Name Role Phone RAZA FRAUSTO Unavailable PROBLEMS Type Condition ICD9-CM Code [id number] Code Onset Dates Condition Status SNOMED Code Problem ADHD (attention deficit hyperactivity disorder), combined type F90.2 Active 92468680 Problem RACHELLE (generalized anxiety disorder) F41.1 Active 61633733 Problem Generalized anxiety disorder 300.02 Active 45478749 Problem Oppositional defiant disorder 313.81 Active 25977865 ALLERGIES No Information SOCIAL HISTORY Never Assessed PLAN OF CARE VITAL SIGNS MEDICATIONS Medication Instructions Dosage Frequency Start Date End Date Duration Status Vyvanse 50 mg Orally Once a day 1 capsule 24h Sep, 28 days Active Adderall 10 mg Orally On Thursday and Thursday for ADHD 1 tablet at noon Sep, 28 days Active RESULTS No Results PROCEDURES No Known procedures IMMUNIZATIONS No Known Immunizations
--- OUTSIDE RECORDS SUMMARY | 2018-05-14 14:22 | XMS REPORT ---
Author Author JASON HUERTA [facility] Address [address] [place] [address] Care Team Providers Care Supervisor Waterworks Name Role Phone JASON HUERTA Unavailable PROBLEMS Type Condition ICD9-CM Code [id number] Code Onset Dates Condition Status SNOMED Code Problem ADHD (attention deficit hyperactivity disorder), combined type F90.2 Active 02482706 Problem RACHELLE (generalized anxiety disorder) F41.1 Active 91379653 Problem Generalized anxiety disorder 300.02 Active 03093322 Problem Oppositional defiant disorder 313.81 Active 35494059 ALLERGIES No Known Allergies SOCIAL HISTORY No smoking Hx information available PLAN OF CARE VITAL SIGNS MEDICATIONS Medication Instructions Dosage Frequency Start Date End Date Duration Status Vyvanse 50 mg Orally Once a day 1 capsule 24h Apr, 28 days Active RESULTS No Results PROCEDURES No Known procedures IMMUNIZATIONS No Known Immunizations
--- OUTSIDE RECORDS SUMMARY | 2018-05-14 14:22 | XMS REPORT ---
Author JASON Mcginnis eClinical[employer] Address Unknown Phone Unavailable Care Team Providers Care Car And Yard Supervisor Name Role Phone JASON HUERTA CP Unavailable Allergies, Adverse Reactions, Alerts Substance Reaction Event Type N.K.D.A. Info Not Available Non Drug Allergy Problems Problem Type Condition Code Onset Dates Condition Status Problem Generalized anxiety disorder 300.02 Active Assessment Attention deficit hyperactivity disorder (ADHD), combined type F90.2 Active Problem Oppositional defiant disorder 313.81 Active Assessment RACHELLE (generalized anxiety disorder) F41.1 Active Medications Medication Code System Code Instructions Start Date End Date Status Dosage Vyvanse [facility] [address]-92 50 MG Orally Once a day for ADHD. June 21, 2014 1 capsule Procedures Procedure Coding System Code Date Office Visit, Est Pt., Level 3 CPT-4 73215 Jan 16, 2015 Vital Signs Date/Time: Jan 16, 2015 Cardiac Monitoring Heart Rate 60 bpm Weight 183.2 lbs Height 72.5 in Ht Percentile 90.63 % BMI 24.50 Index Blood Pressure Diastolic 80 mmHg Blood Pressure Systolic 120 mmHg BMIPercentile 84.42 % Wt Percentile 92.55 % Results No Known Results Summary Purpose eClinicalWorks Submission
--- OUTSIDE RECORDS SUMMARY | 2018-05-14 14:22 | XMS REPORT | Continuity of Care Document ---
Author Author [facility] Address Unknown Phone Unavailable Allergies There is no data. Medications There is no data. Problems Date Dx Coded Attending Type Code Diagnosis Diagnosed By 11/24/2007 V70.3 SPORTS/SCHOOL EXAM 11/24/2007 MING CHAVES LCPC V70.3 SPORTS/SCHOOL EXAM 11/24/2007 LISBET OLIVAS, RAZA V70.3 SPORTS/SCHOOL EXAM 11/24/2007 RAZA FRAUSTO MD V70.3 SPORTS/SCHOOL EXAM 11/24/2007 JASON HUERTA APRN V70.3 SPORTS/SCHOOL EXAM 11/24/2007 RAZA FRAUSTO MD V70.3 SPORTS/SCHOOL EXAM 11/24/2007 SERVANDO HUERTA APRNA J V70.3 SPORTS/SCHOOL EXAM 11/24/2007 SERVANDO HUERTA APRNA Steven V70.3 SPORTS/SCHOOL EXAM 11/24/2007 SERVANDO HUERTA APRNA Steven V70.3 SPORTS/SCHOOL EXAM 11/24/2007 SERVANDO HUERTA APRNA J V70.3 SPORTS/SCHOOL EXAM 02/09/2009 079.99 VIRAL SYNDROME 02/09/2009 MING CHAVES LCPC 079.99 VIRAL SYNDROME 02/09/2009 RAZA FRAUSTO MD 079.99 VIRAL SYNDROME 02/09/2009 RAZA FRAUSTO MD 079.99 VIRAL SYNDROME 02/09/2009 JASON HUERTA APRN 079.99 VIRAL SYNDROME 02/09/2009 RAZA FRAUSTO MD 079.99 VIRAL SYNDROME 02/09/2009 JASON HUERTA APRN 079.99 VIRAL SYNDROME 02/09/2009 SERVANDO HUERTA APRNA Steven 079.99 VIRAL SYNDROME 02/09/2009 SERVANDO HUERTA APRNA Steven 079.99 VIRAL SYNDROME 02/09/2009 JASON HUERTA APRN 079.99 VIRAL SYNDROME 06/19/2009 477.9 ALLERGIC RHINITIS 06/19/2009 MING CHAVES LCPC 477.9 ALLERGIC RHINITIS 06/19/2009 RAZA FRAUSTO MD 477.9 ALLERGIC RHINITIS 06/19/2009 RAZA FRAUSTO MD 477.9 ALLERGIC RHINITIS 06/19/2009 BRADLEY MOTION PICTURE PROJECTIONIST, JASON J 477.9 ALLERGIC RHINITIS 06/19/2009 RAZA FRAUSTO MD 477.9 ALLERGIC RHINITIS 06/19/2009 BRADLEY MOTION PICTURE PROJECTIONIST, JASON J 477.9 ALLERGIC RHINITIS 06/19/2009 BRADLEY MOTION PICTURE PROJECTIONIST, JASON J 477.9 ALLERGIC RHINITIS 06/19/2009 BRADLEY MOTION PICTURE PROJECTIONIST, JASON J 477.9 ALLERGIC RHINITIS 06/19/2009 BRADLEY MOTION PICTURE PROJECTIONIST, JASON J 477.9 ALLERGIC RHINITIS 08/07/2009 008.8 INTESTINAL INFECTIONS DUE TO OTHER ORGANISMS, NOT ELSEWHERE CLASSIFIED 08/07/2009 MING CHAVES LCPC 008.8 INTESTINAL INFECTIONS DUE TO OTHER ORGANISMS, NOT ELSEWHERE CLASSIFIED 08/07/2009 RAZA FRAUSTO MD 008.8 INTESTINAL INFECTIONS DUE TO OTHER ORGANISMS, NOT ELSEWHERE CLASSIFIED 08/07/2009 RAZA FRAUSTO MD 008.8 INTESTINAL INFECTIONS DUE TO OTHER ORGANISMS, NOT ELSEWHERE CLASSIFIED 08/07/2009 BRADLEY PATIÑO, JASON J 008.8 INTESTINAL INFECTIONS DUE TO OTHER ORGANISMS, NOT ELSEWHERE CLASSIFIED 08/07/2009 RAZA FRAUSTO MD 008.8 INTESTINAL INFECTIONS DUE TO OTHER ORGANISMS, NOT ELSEWHERE CLASSIFIED 08/07/2009 BRADLEY PATIÑO, JASON J 008.8 INTESTINAL INFECTIONS DUE TO OTHER ORGANISMS, NOT ELSEWHERE CLASSIFIED 08/07/2009 BRADLEY PATIÑO JASON J 008.8 INTESTINAL INFECTIONS DUE TO OTHER ORGANISMS, NOT ELSEWHERE CLASSIFIED 08/07/2009 BRADLEY PATIÑO JASON J 008.8 INTESTINAL INFECTIONS DUE TO OTHER ORGANISMS, NOT ELSEWHERE CLASSIFIED 08/07/2009 BRADLEY MOTION PICTURE PROJECTIONIST, JASON J 008.8 INTESTINAL INFECTIONS DUE TO OTHER ORGANISMS, NOT ELSEWHERE CLASSIFIED 09/27/2009 919.4 INSECT BITE NONVENOMOUS OF OTHER MULTIPLE AND UNSPECIFIED SITES WITHOUT INFECTION 09/27/2009 995.3 CERTAIN ADVERSE EFFECTS NOT ELSEWHERE CLASSIFIED, ALLERGY, UNSPECIFIED 09/27/[address] OF OCCURRENCE 09/27/2009 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 09/27/2009 MING CHAVES LCPC 919.4 INSECT BITE NONVENOMOUS OF OTHER MULTIPLE AND UNSPECIFIED SITES WITHOUT INFECTION 09/27/2009 MING CHAVES LCPC B 995.3 CERTAIN ADVERSE EFFECTS NOT ELSEWHERE CLASSIFIED, ALLERGY, UNSPECIFIED 09/27/2009 MING CHAVES LCPC E849.[address] OF OCCURRENCE 09/27/2009 MING CHAVES LCPC B 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 09/27/2009 RAZA FRAUSTO MD 919.4 INSECT BITE NONVENOMOUS OF OTHER MULTIPLE AND UNSPECIFIED SITES WITHOUT INFECTION 09/27/2009 RAZA FRAUSTO MD 995.3 CERTAIN ADVERSE EFFECTS NOT ELSEWHERE CLASSIFIED, ALLERGY, UNSPECIFIED 09/27/2009 RAZA FRAUSTO MD E849.[address] OF OCCURRENCE 09/27/2009 RAZA FRAUSTO MD 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 09/27/2009 RAZA FRAUSTO MD 919.4 INSECT BITE NONVENOMOUS OF OTHER MULTIPLE AND UNSPECIFIED SITES WITHOUT INFECTION 09/27/2009 RAZA FRAUSTO MD 995.3 CERTAIN ADVERSE EFFECTS NOT ELSEWHERE CLASSIFIED, ALLERGY, UNSPECIFIED 09/27/2009 RAZA FRAUSTO MD E849.[address] OF OCCURRENCE 09/27/2009 RAZA FRAUSTO MD 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 09/27/2009 JASON HUERTA APRN 919.4 INSECT BITE NONVENOMOUS OF OTHER MULTIPLE AND UNSPECIFIED SITES WITHOUT INFECTION 09/27/2009 JASON HUERTA APRN 995.3 CERTAIN ADVERSE EFFECTS NOT ELSEWHERE CLASSIFIED, ALLERGY, UNSPECIFIED 09/27/2009 JASON HUERTA APRN E849.[address] OF OCCURRENCE 09/27/2009 JASON HUERTA APRN 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 09/27/2009 RAZA FRAUSTO MD 919.4 INSECT BITE NONVENOMOUS OF OTHER MULTIPLE AND UNSPECIFIED SITES WITHOUT INFECTION 09/27/2009 RAZA FRAUSTO MD 995.3 CERTAIN ADVERSE EFFECTS NOT ELSEWHERE CLASSIFIED, ALLERGY, UNSPECIFIED 09/27/2009 RAZA FRAUSTO MD E849.[address] OF OCCURRENCE 09/27/2009 RAZA FRAUSTO MD 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 09/27/2009 BRADLEY MOTION PICTURE PROJECTIONIST, JASON J 919.4 INSECT BITE NONVENOMOUS OF OTHER MULTIPLE AND UNSPECIFIED SITES WITHOUT INFECTION 09/27/2009 BRADLEY MOTION PICTURE PROJECTIONIST, JASON J 995.3 CERTAIN ADVERSE EFFECTS NOT ELSEWHERE CLASSIFIED, ALLERGY, UNSPECIFIED 09/27/2009 BRADLEY MOTION PICTURE PROJECTIONIST, JASON J E849.[address] OF OCCURRENCE 09/27/2009 BRADLEY MOTION PICTURE PROJECTIONIST, JASON J 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 09/27/2009 BRADLEY MOTION PICTURE PROJECTIONIST, JASON J 919.4 INSECT BITE NONVENOMOUS OF OTHER MULTIPLE AND UNSPECIFIED SITES WITHOUT INFECTION 09/27/2009 BRADLEY MOTION PICTURE PROJECTIONIST, JASON J 995.3 CERTAIN ADVERSE EFFECTS NOT ELSEWHERE CLASSIFIED, ALLERGY, UNSPECIFIED 09/27/2009 BRADLEY MOTION PICTURE PROJECTIONIST, JASON J E849.[address] OF OCCURRENCE 09/27/2009 BRADLEY MOTION PICTURE PROJECTIONIST, JASON J 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 09/27/2009 BRADLEY MOTION PICTURE PROJECTIONIST, JASON J 919.4 INSECT BITE NONVENOMOUS OF OTHER MULTIPLE AND UNSPECIFIED SITES WITHOUT INFECTION 09/27/2009 BRADLEY MOTION PICTURE PROJECTIONIST, JASON J 995.3 CERTAIN ADVERSE EFFECTS NOT ELSEWHERE CLASSIFIED, ALLERGY, UNSPECIFIED 09/27/2009 BRADLEY MOTION PICTURE PROJECTIONIST, JASON J E849.[address] OF OCCURRENCE 09/27/2009 BRADLEY MOTION PICTURE PROJECTIONIST, JASON J 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 09/27/2009 BRADLEY MOTION PICTURE PROJECTIONIST, JASON J 919.4 INSECT BITE NONVENOMOUS OF OTHER MULTIPLE AND UNSPECIFIED SITES WITHOUT INFECTION 09/27/2009 BRADLEY MASSEYN, JASON J 995.3 CERTAIN ADVERSE EFFECTS NOT ELSEWHERE CLASSIFIED, ALLERGY, UNSPECIFIED 09/27/2009 BRADLEY MOTION PICTURE PROJECTIONIST, JASON J E849.[address] OF OCCURRENCE 09/27/2009 BRADLEY MOTION PICTURE PROJECTIONIST, JASON J 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 01/02/2010 719.46 PAIN IN JOINT , LOWER LEG 01/02/2010 MING CHAVES LCPC 719.46 PAIN IN JOINT, LOWER LEG 01/02/2010 RAZA FRAUSTO MD 719.46 PAIN IN JOINT, LOWER LEG 01/02/2010 RAZA FRAUSTO MD 719.46 PAIN IN JOINT, LOWER LEG 01/02/2010 BRADLEY PATIÑO, JASON J 719.46 PAIN IN JOINT, LOWER LEG 01/02/2010 RAZA FRAUSTO MD 719.46 PAIN IN JOINT, LOWER LEG 01/02/2010 BRADLEY PATIÑO, JASON J 719.46 PAIN IN JOINT, LOWER LEG 01/02/2010 BRADLEY PATIÑO, JASON J 719.46 PAIN IN JOINT, LOWER LEG 01/02/2010 BRADLEY PATIÑO, JASON J 719.46 PAIN IN JOINT, LOWER LEG 01/02/2010 BRADLEY MOTION PICTURE PROJECTIONIST, JASON J 719.46 PAIN IN JOINT, LOWER LEG 07/30/2010 314.01 ADHD COMBINED 07/30/2010 ANASTACIO CORDOBA, MING B 314.01 ADHD COMBINED 07/30/2010 RAZA FRAUSTO MD 314.01 ADHD COMBINED 07/30/2010 RAZA FRAUSTO MD 314.01 ADHD COMBINED 07/30/2010 BRADLEY PATIÑO, JASON J 314.01 ADHD COMBINED 07/30/2010 RAZA FRAUSTO MD 314.01 ADHD COMBINED 07/30/2010 BRADLEY PATIÑO, JASON J 314.01 ADHD COMBINED 07/30/2010 BRADLEY PATIÑO, JASON J 314.01 ADHD COMBINED 07/30/2010 BRADLEY PATIÑO, JASON J 314.01 ADHD COMBINED 07/30/2010 BRADLEY PATIÑO, JASON J 314.01 ADHD COMBINED 10/29/2010 V06.1 TDAP DX 10/29/2010 ANASTACIO CORDOBA, MING B V06.1 TDAP DX 10/29/2010 RAZA FRAUSTO MD V06.1 TDAP DX 10/29/2010 RAZA FRAUSTO MD V06.1 TDAP DX 10/29/2010 BRADLEY PATIÑO, JASON J V06.1 TDAP DX 10/29/2010 RAZA FRAUSTO MD V06.1 TDAP DX 10/29/2010 BRADLEY PATIÑO, JASON J V06.1 TDAP DX 10/29/2010 BRADLEY PATIÑO, JASON J V06.1 TDAP DX 10/29/2010 BRADLEY PATIÑO, JASON J V06.1 TDAP DX 10/29/2010 BRADLEY PATIÑO JASON J V06.1 TDAP DX 02/23/2013 RAZA FRAUSTO MD 300.02 AN GEN ANXIETY 02/23/2013 RAZA FRAUSTO MD 313.81 CD OPPOSITIONAL DEFIANT 02/23/2013 RAZA FRAUSTO MD 300.02 AN GEN ANXIETY 02/23/2013 RAZA FRAUSTO MD 313.81 CD OPPOSITIONAL DEFIANT 02/23/2013 JASON HUERTA APRN 300.02 AN GEN ANXIETY 02/23/2013 SERVANDO HUERTA APRNA Steven 313.81 CD OPPOSITIONAL DEFIANT 02/23/2013 RAZA FRAUSTO MD 300.02 AN GEN ANXIETY 02/23/2013 RAZA FRAUSTO MD 313.81 CD OPPOSITIONAL DEFIANT 02/23/2013 SERVANDO HUERTA APRNA J 300.02 AN GEN ANXIETY 02/23/2013 SERVANDO HUERTA APRNA J 313.81 CD OPPOSITIONAL DEFIANT 02/23/2013 SERVANDO HUERTA APRNA Steven 300.02 AN GEN ANXIETY 02/23/2013 SERVANDO HUERTA APRNA Steven 313.81 CD OPPOSITIONAL DEFIANT 02/23/2013 SERVANDO HUERTA APRNA Steven 300.02 AN GEN ANXIETY 02/23/2013 SERVANDO HUERTA APRNA Steven 313.81 CD OPPOSITIONAL DEFIANT 02/23/2013 SERVANDO HUERTA APRNA Steven 300.02 AN GEN ANXIETY 02/23/2013 SERVANDO HUERTA APRNA J 313.81 CD OPPOSITIONAL DEFIANT Procedures Code [place] [address] PSYCH DIAGNOSTIC EVALUATION 02/14/2013 Results There is no data. Encounters ACCT No. Visit Date/Time Discharge Status Pt. Type Provider Facility Loc./Unit Complaint [id number] 12/22/2013 15:47:00 12/22/2013 23:59:59 CLS Outpatient JASON HUERTA APRN [id number] 12/22/2013 15:47:00 12/22/2013 23:59:59 CLS Outpatient JASON HUERTA APRN [id number] 09/21/2013 10:21:00 09/21/2013 23:59:59 CLS Outpatient JASON HUERTA APRN [id number] 06/07/2013 09:32:00 06/07/2013 23:59:59 CLS Outpatient RAZA FRAUSTO MD [id number] 06/07/2013 09:32:00 06/07/2013 23:59:59 CLS Outpatient JASON HUERTA APRN [id number] 03/30/2013 08:55:00 03/30/2013 23:59:59 CLS Outpatient JASON HUERTA APRN [id number] 03/30/2013 08:55:00 03/30/2013 23:59:59 CLS Outpatient RAZA FRAUSTO MD [id number] 02/23/2013 08:34:00 02/23/2013 23:59:59 CLS Outpatient RAZA FRAUSTO MD [id number] 02/14/2013 14:00:00 02/14/2013 23:59:59 CLS Outpatient MING CHAVES LCPC [id number] 10/09/2011 09:29:00 10/09/2011 23:59:59 CLS Outpatient [id number] 08/20/2017 16:00:00 08/20/2017 23:59:59 CLS Outpatient HUMZA LICEA [facility]
--- OUTSIDE RECORDS SUMMARY | 2018-05-14 14:22 | XMS REPORT ---
Author Author BRADLEY JASON [facility] Address [address] [place] [address] Care Team Providers Care Rfid Manager Name Role Phone SERVANDO HUERTAA Unavailable PROBLEMS Type Condition ICD9-CM Code CGC33-MQ Code Onset Dates Condition Status SNOMED Code Problem ADHD (attention deficit hyperactivity disorder), combined type F90.2 Active 75226007 Problem RACHELLE (generalized anxiety disorder) F41.1 Active 85722441 Problem Generalized anxiety disorder 300.02 Active 51936661 Problem Oppositional defiant disorder 313.81 Active 58235963 ALLERGIES No Information ENCOUNTERS Encounter Location Date Diagnosis [facility] [id number] [place] [address] 29544- 8682 August, [facility] [id number] [place] [address] 00060- 8356 Jun, [facility] [id number] [place] [address] 49944- 7263 Apr, [facility] [id number] [place] [address] 50751- 9293 Apr, ADHD (attention deficit hyperactivity disorder), combined type F90.2 [facility] [id number] [place] [address] 28525- 6618 Feb, [facility] [id number] [place] [address] 78497- 1887 Jan, [facility] [address] [address]- [address] Dec, [facility] [id number] [place] [address] 34159- 8401 Nov, ADHD (attention deficit hyperactivity disorder), combined type F90.2 and RACHELLE (generalized anxiety disorder) F41.1 [facility] [address] [address] 2543 Sep, [facility] [id number] [address] 2546 Jul, [facility] [id number] [address] 2546 Jun, [facility] [id number] [place] [address] 59946 2546 May, [facility] [id number] [place] [address] 39189 2548 May, ADHD (attention deficit hyperactivity disorder), combined type F90.2 and RACHELLE (generalized anxiety disorder) F41.1 [facility] [address] [address] 3[address] Apr, [facility] [id number] [place] [address] 53306- 7036 Apr, [facility] [address], [place] [address] 8[address] Mar, [facility] [id number] [place] [address] 27065- 3046 Feb, [facility] [address] [address] 26[address] Jan, [facility] [address] [address] 2546 Jan, ADHD (attention deficit hyperactivity disorder), combined type F90.2 and RACHELLE (generalized anxiety disorder) F41.1 [facility] [address] [address] 2546 Dec, [facility] [address] [address] 2546 Nov, [facility] [address] [id number] Nov, Sports physical Z02.5 ; Exercise counseling Z71.89 and Dietary counseling Z71.3 [facility] [id number] [place] [address] 64659- 8963 Oct, [facility] [id number] [place] [address] 61720- 5478 Sep, [facility] [id number] [place] [address] 87463- 8324 Sep, [facility] [id number] [place] [address] 92796- 5920 August, [facility] [id number] [place] [address] 40302- 5288 Jul, [facility] [id number] [place] [address] 01553- 6076 Jul, ADHD (attention deficit hyperactivity disorder), combined type F90.2 and RACHELLE (generalized anxiety disorder) F41.1 [facility] [id number] [address] 4244 Jun, [facility] [id number] [place] [address] 66185- 1994 May, [facility] [id number] [address] 9746 Apr, [facility] [id number] [address] 4011 Apr, [facility] [id number] [place] [address] 24302- 0958 Apr, ADHD (attention deficit hyperactivity disorder), combined type F90.2 and RACHELLE (generalized anxiety disorder) F41.1 [facility] [address] [address] Mar, [facility] [address] [address] 7739 Jan, Attention deficit hyperactivity disorder (ADHD), combined type F90.2 and RACHELLE (generalized anxiety disorder) F41.1 [facility] [id number] [address]- 6065 Nov, [facility] [id number] [place] [address] 24441- 0963 Nov, [facility] [id number] [place] [address] 240122- 1580 August, Attention deficit disorder with hyperactivity 314.01 and Generalized anxiety disorder 300.02 [facility] [id number] [place] [address] 70258- 9643 Jul, [facility] [id number] [place] [address] 94385- 3568 Jul, [facility] [id number] [place] [address] 33306- 4347 Jun, [facility] [id number] [place] [address] 17874- 4884 Jun, [facility] [id number] [place] [address] 79982- 3000 May, [facility] [id number] [place] [address] 98478- 7878 May, [facility] [id number] [address]- 9608 Mar, [facility] [id number] [place] [address] 47055- 3841 Mar, [facility] [address] [address]- 7982 Dec, [facility] [id number] [place] [address] 53038- 8609 Dec, [facility] [address], [place] [address]- 6613 Sep, [facility] [id number] [place] [address] 02726- 6188 Sep, [facility] [place] [facility] [address] [id number] [place] [address]- 6545 Sep, [facility] [place] [facility] [address] [id number] [place] [address]- 1160 Sep, [facility] [place] [facility] [address] [id number] [place] [address]- 7000 August, [facility] [place] [facility] [address] [id number] [place] [address]- 1804 August, [facility] [place] [facility] [address] [id number] [place] [address]- 9563 August, [facility] [place] [facility] [address] [id number] [place] [address]- 4028 August, [facility] [place] [facility] [address] [id number] [place] [address]- 8744 Jul, [facility] [place] [facility] [address] [id number] [place] [address]- 2777 Jul, [facility] [place] [facility] [address] [id number] [place] [address]- 1068 May, [facility] [place] [facility] [address] [id number] [place] [address]- 2668 May, [facility] [place] [facility] [address] [id number] [place] [address]- 7943 Apr, [facility] [place] [facility] [address] [id number] [place] [address]- 9497 Apr, [facility] [place] [facility] [address] [id number] [place] [address]- 6916 Mar, [facility] [place] [facility] [address] [id number] [place] [address]99 Mar, [facility] [place] [facility] [address] [id number] [place] [address]- 2745 Mar, [facility] [place] [facility] [address] [id number] [place] [address] 2541 18 Mar, 2013 [facility] [place] [facility] [address] [id number] [place] [address]- 4076 Mar, [facility] [place] [facility] [address] [id number] [place] [address]- 2546 Feb, [facility] [place] [facility] [address] [id number] [place] [address]- 2546 Feb, [facility] [place] [facility] [address] [id number] [place] [address]- 2546 Feb, [facility] [place] [facility] [address] [id number] [place] [address]- 2546 Feb, [facility] [place] [facility] [address] [id number] [place] [address]- 4983 Apr, [facility] [place] [facility] [address] [id number] [place] [address]- 5336 Sep, [facility] [place] [facility] [address] [id number] [place] [address]- 5969 Jan, [facility] [place] [facility] [address] [id number] [place] [address]- 3438 Jan, [facility] [place] [facility] [address] [facility] [id number] [place] [address]- 8864 Oct, [facility] [place] [facility] [address] [id number] [place] [address]- 0432 Jul, [facility] [place] [facility] [address] [id number] [place] [address] 2541 Mar, [facility] [place] [facility] [address] [id number] [place] [address]- 2546 Feb, [facility] [place] [facility] [address] [id number] [place] [address]- 2546 Jan, [facility] [place] [facility] [address] [id number] [place] [address]- 7656 Sep, [facility] [address] [facility] [id number] [place] [address]- 5096 Jan, IMMUNIZATIONS No Known Immunizations SOCIAL HISTORY Never Assessed REASON FOR VISIT medication PLAN OF CARE VITAL SIGNS MEDICATIONS Medication Instructions Dosage Frequency Start Date End Date Duration Status Vyvanse 60 MG Orally Once a day 1 capsule 24h 14 Dec, 2016 28 days Active RESULTS No Results PROCEDURES No Known procedures INSTRUCTIONS MEDICATIONS ADMINISTERED No Known Medications
--- OUTSIDE RECORDS SUMMARY | 2018-05-14 14:22 | XMS REPORT ---
Author Author JASON HUERTA [facility] Address [address] [place] [address] Care Team Providers Care Filling Hauler Weaving Name Role Phone JASON HUERTA Unavailable PROBLEMS Type Condition ICD9-CM Code [id number] Code Onset Dates Condition Status SNOMED Code Problem ADHD (attention deficit hyperactivity disorder), combined type F90.2 Active 88790974 Problem RACHELLE (generalized anxiety disorder) F41.1 Active 17280373 Problem Oppositional defiant disorder 313.81 Active 81827836 Problem Generalized anxiety disorder 300.02 Active 66393868 ALLERGIES Unknown Allergies SOCIAL HISTORY No smoking Hx information available PLAN OF CARE VITAL SIGNS MEDICATIONS Medication Instructions Dosage Frequency Start Date End Date Duration Status Vyvanse 50 mg Orally. no further refills until attends appt. Once a day for ADHD. 1 capsule Jun, Active RESULTS No Results PROCEDURES No Known procedures IMMUNIZATIONS No Known Immunizations
--- OUTSIDE RECORDS SUMMARY | 2018-05-14 14:22 | XMS REPORT ---
Author Author JASON HUERTA [employer] Address Unknown Phone Unavailable Care Team Providers Care Airline Manager Name Role Phone JASON HUERTA CP Unavailable Allergies No Known Allergies Problems Problem Type Condition Code Onset Dates Condition Status Problem RACHELLE (generalized anxiety disorder) F41.1 Active Problem Oppositional defiant disorder 313.81 Active Problem ADHD (attention deficit hyperactivity disorder), combined type F90.2 Active Problem Generalized anxiety disorder 300.02 Active Medications Medication Code System Code Instructions Start Date End Date Status Dosage Vyvanse [facility] [address]-57 50 mg Orally Once a day for ADHD. June 21, 2014 1 capsule Results No Known Results Summary Purpose [employer] Submission
--- OUTSIDE RECORDS SUMMARY | 2018-05-14 14:22 | XMS REPORT ---
Author Author JASON HUERTA [facility] Address [address] [place] [address] Care Team Providers Care Change Director Name Role Phone JASON HUERTA Unavailable PROBLEMS Type Condition ICD9-CM Code [id number] Code Onset Dates Condition Status SNOMED Code Problem ADHD (attention deficit hyperactivity disorder), combined type F90.2 Active 34382908 Problem RACHELLE (generalized anxiety disorder) F41.1 Active 73744949 Problem Generalized anxiety disorder 300.02 Active 07548409 Problem Oppositional defiant disorder 313.81 Active 78627080 ALLERGIES Unknown Allergies SOCIAL HISTORY No smoking Hx information available PLAN OF CARE VITAL SIGNS MEDICATIONS Medication Instructions Dosage Frequency Start Date End Date Duration Status Adderall 10 mg Orally On Thursday and Thursday for ADHD 1 tablet at noon 11 Jan, 2016 30 days Active RESULTS No Results PROCEDURES No Known procedures IMMUNIZATIONS No Known Immunizations
--- OUTSIDE RECORDS SUMMARY | 2018-05-14 14:22 | XMS REPORT ---
Author JASON Mcginnis [employer] Address Unknown Phone Unavailable Care Team Providers Care Ice Skating Coach Name Role Phone JASON HUERTA CP Unavailable Allergies No Known Allergies Problems Problem Type Condition Code Onset Dates Condition Status Problem RACHELLE (generalized anxiety disorder) F41.1 Active Problem Oppositional defiant disorder 313.81 Active Problem ADHD (attention deficit hyperactivity disorder), combined type F90.2 Active Problem Generalized anxiety disorder 300.02 Active Medications Medication Code System Code Instructions Start Date End Date Status Dosage Vyvanse [facility] [address]-02 50 mg Orally. no further refills until attends appt. Once a day for ADHD. June 21, 2014 1 capsule Results No Known Results Summary Purpose [employer] Submission
--- OUTSIDE RECORDS SUMMARY | 2018-05-14 14:22 | XMS REPORT ---
Author Author JASON HUERTA [facility] Address [address] [place] [address] Care Team Providers Care Materials Planner Name Role Phone JASON HUERTA Unavailable PROBLEMS Type Condition ICD9-CM Code [id number] Code Onset Dates Condition Status SNOMED Code Problem ADHD (attention deficit hyperactivity disorder), combined type F90.2 Active 52406947 Problem RACHELLE (generalized anxiety disorder) F41.1 Active 86352595 Problem Generalized anxiety disorder 300.02 Active 81164118 Problem Oppositional defiant disorder 313.81 Active 01100027 ALLERGIES No Known Allergies SOCIAL HISTORY Never Assessed PLAN OF CARE Activity Details Follow Up 4 Months Reason: VITAL SIGNS Height 73.0 in 2016-05-20 Weight 199.8 lbs 2016-05-20 Heart Rate 64 bpm 2016-05-20 Respiratory Rate 18 2016-05-20 BMI 26.36 kg/m2 2016-05-20 Blood pressure systolic 92 mmHg 2016-05-20 Blood pressure diastolic 71 mmHg 2016-05-20 MEDICATIONS Medication Instructions Dosage Frequency Start Date End Date Duration Status Adderall 10 mg Orally On Thursday and Thursday for ADHD 1 tablet at noon 11 Jan, 2016 Active Vyvanse 50 mg Orally Once a day 1 capsule 24h Apr, Active RESULTS No Results PROCEDURES No Known procedures IMMUNIZATIONS No Known Immunizations
--- OUTSIDE RECORDS SUMMARY | 2018-05-14 14:22 | XMS REPORT ---
Author Author JASON HUERTA [employer] Address Unknown Phone Unavailable Care Team Providers Care Manager Gallery Name Role Phone JASON HUERTA CP Unavailable Allergies No Known Allergies Problems Problem Type Condition Code Onset Dates Condition Status Problem Generalized anxiety disorder 300.02 Active Problem Oppositional defiant disorder 313.81 Active Medications Medication Code System Code Instructions Start Date End Date Status Dosage Vyvanse [facility] [address]-[address] Barreto to sign for Yaquelin Once a day for ADHD. June 21, 2014 1 capsule Results No Known Results Summary Purpose e[employer] Submission
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
--- NOTE | 2018-05-14 15:49 | Diagnostic Imaging Report ---
INDICATION: Left hand injury. COMPARISON: None. FINDINGS: 3 views of the left hand show no fractures, dislocations or other acute bony abnormalities identified. Joint spaces are well maintained throughout. The soft tissues appear unremarkable. No radiopaque foreign bodies are identified. IMPRESSION: Normal left hand. Dictated by: Dictated on workstation # [id number]
--- NOTE | 2018-05-14 15:50 | Diagnostic Imaging Report ---
INDICATION: Left wrist trauma COMPARISON: none. FINDINGS: Four views of the left wrist demonstrate no acute fracture or dislocation. The visualized soft tissue structures are unremarkable. There are no radiopaque foreign bodies. IMPRESSION: No acute fracture or dislocation in the left wrist. Dictated by: Dictated on workstation # [id number]
== END 2018-05-14 16:15 | disposition home or self-care (01) ==
LOC: EDUNIT# 14:13 → ER 14:16
DX: S60.212A Contusion of left wrist, initial encounter (principal); V49.40XA Driver injured in collision with unspecified motor vehicles in traffic accident, initial encounter
CPT/HCPCS: 73110; 73130